=== PATIENT | female | born 1995 | race Caucasian/White ===

== ENCOUNTER 2016-05-30 05:01 | Inpatient (IN) | payer MEDICAID ==
[2016-05-30] VITALS (7 sets, daily range): BP systolic 116–130; BP diastolic 68–80; PULSE 52–72; RESP 18
[~2016-05-30] VITALS: Ht 165.1 cm; Wt 49.4 kg
[~2016-05-30 05:01] MED LIST: CALNTAB
--- NOTE | 2016-05-30 06:48 | HHI.HP ---
History & Physical H&P HPI Travel History International Travel<30 Days: No Contact w/Intl Traveler<30Days: No Known Affected Area: No History of Present Illness HPI This patient is a 20-year-old 1 para 0 EDC is June 11, 2016 presently at 38 weeks and 2 days she presents with chief complaint of onset of contractions at 3:30 AM no rupture of membranes positive bloody show baby's been active care with [facility] courses been unremarkable problem list includes late onset of care under weight UTI rubella nonimmune group B strep is negative hemoglobin A1c 5.6 O+ last hemoglobin of 10.8 rubella nonimmune Pap normal VDRL is negative hepatitis-negative HIV-negative GC Chlamydia negative GBS negative History (Limited) History Past Medical History Narrative Medical Allergy to liquid Tylenol and oranges states she has nausea and vomiting with a liquid and breaks out in hives with oranges Obstetric History Obstetric History First Past Surgical History Surgical History: No Previous Surgery Family History Family History: Negative Social History Alcohol Use: No Tobacco Use: No Substance Abuse: No Allergies-Medications Allergies-Medications (Allergen,Severity, Reaction): Coded Allergies: Tylenol (Unverified Adverse Reaction, Mild, VOMITING, 05/28/16) Home Meds Reported Medications Vitamin (Calna)1 Tab Tab 05/13/16 ROS Review of Systems Gastrointestinal: Abdominal Pain (contractions) Physical Exam Physical Exam Narrative GENERAL: Well-nourished, well-developed patient. Alert oriented 3 and cooperative in moderate distress secondary to uterine contractions SKIN: Warm and dry. HEAD: Normocephalic and atraumatic. EYES: No scleral icterus. No injection or drainage. Conjunctiva are pink ENT: No nasal drainage noted. Mucous membranes pink. Airway patent. Nose tab 2 NECK: Supple, trachea midline. No JVD. CARDIOVASCULAR: Regular rate and rhythm without murmurs, gallops, or rubs. RESPIRATORY: Breath sounds equal bilaterally. No accessory muscle use. ABDOMEN/GI: Gravid estimated weight is 5-1/2-6 pounds, patient has abdominal tattoo Gravid to [-] weeks size term Fundal Height: [-] GENITOURINARY: External Genitalia: intact and normal in appearance BUS glands: [-] Cervix: [-] Slightly posterior Dilatation: [-] 2 cm dilated Effacement: [-] 100% effaced Station: [-] +1 station Presentation: [-] Vertex Membranes: [intact Contractions every 2-3 minutes FHT's: Category: [-] 1 Baseline: [-] 130 Reactive: [-] Positive with accelerations up to 160 Variability: [-] Moderate darr-hc-yufi variability Decels: [-] 0 EXTREMITIES: No cyanosis or edema. 2+ reflexes NEUROLOGICAL: Awake and alert. Motor and sensory grossly within normal limits. Five out of 5 muscle strength in all muscle groups. Normal speech. Data Data Data Vital Signs Reviewed: Yes (blood pressure is 121/76 pulse 81 respiration 16 temperature is 97.4) Orders Ob (2e) Additional Admit Info (05/30/16 06:36) MDM MDM Medical Record Reviewed: Yes Interpretation(s) 20-year-old 1 para 0 at 38 weeks and 2 days Early latent phase History of anemia GBS is negative Rubella nonimmune Plan Admit as patient has made change from initial exam External monitoring IV fluid hydration CBC type and screen Patient does desire an epidural Diagnosis Diagnosis: Primary Impression: with 38 completed weeks gestation Nurys Zamarripa MD May 30, 2016 06:47 Nurys Zamarripa MD May 30, 2016 06:48
[2016-05-30] MEDS ORDERED: SODIUM CHLORID 0.9% 500 ML INJ 500 ML IV PRN (07:00)
[2016-05-30] MEDS ORDERED: LIDOCAINE HCL 1% 50 ML VIAL I-DERMAL PRN (07:00)
[2016-05-30] MEDS ORDERED: OXYTOCIN 30 UNITS-500ML PREMIX 500 ML IV ONE (07:00)
[2016-05-30] MEDS ORDERED: CITRIC ACID-SODIUM CITRATE LIQ 30 ML UDC PO SCH (07:00)
[2016-05-30] MEDS ORDERED: MINERAL OIL 10 ML VIAL TOPICAL PRN (07:00)
[2016-05-30] MEDS ORDERED: LIDOCAINE HCL 1% 50 ML VIAL INFIL PRN (07:00)
[2016-05-30] MEDS ORDERED: SODIUM CHLOR 0.9% 1000 ML INJ 1,000 ML IV PRN (07:08)
[2016-05-30 07:53] LABS: BACTERIA, URINE MOD /hpf; BLOOD, URINE MOD (NEG); COMMENT (UR) CULTURE INDICATED; CULTURE IF INDICATED CULTURE INDICATED; GLUCOSE,URINE NEG (NEG); KETONE, URINE NEG (NEG); NITRITE,URINE NEG (NEG); SQUAMOUS EPITHELIAL CELL URINE 2 /hpf (0-5); URINE COLOR LIGHT-YELLOW (YELLW/STRAW)
[2016-05-30] MEDS ORDERED: ACET1CAP18 PO (08:03)
[2016-05-30 08:12] LABS: AMPHETAMINE, URINE NEG (NEG); BARBITURATES, URINE NEG (NEG); COCAINE, URINE NEG (NEG)
[2016-05-30 08:21] LABS: BASOPHIL % 0.3 % (0.0-2.0); EOSINOPHIL % 0.1 % (0.0-4.0); HEMATOCRIT 29.4 % (35.0-46.0); HEMO FLAGS DIFF FINAL; LYMPH % 8.6 % (9.0-44.0); MEAN CELL VOLUME 77.5 FL (80.0-100.0); MEAN CORPUSCULAR HEMOGLOBIN 25.9 PG (27.0-34.0); MEAN CORPUSCULAR HGB CONC 33.4 % (32.0-36.0); MONO % 7.7 % (0.0-8.0); NEUT % 83.3 % (16.0-70.0); PLATELET COUNT 179 TH/MM3 (150-450); RED CELL DISTRIBUTION WIDTH 14.4 % (11.6-17.2)
[2016-05-30] MEDS: LACTATED RINGER'S 1000 ML INJ 1,000 ML IV SCH ×2 (08:39→18:44)
[2016-05-30] MEDS ORDERED: fentaNYL 2MCG-BUPIV 0.125% INJ 100 ML ONE (09:02)
[2016-05-30] MEDS ORDERED: ePHEDrine/NS 50 MG/5 ML SYR ONE (09:04)
[2016-05-30] MEDS: LACTATED RINGER'S 1000 ML INJ 1,000 ML IV PRN ×2 (10:14→14:04)
[2016-05-30] MEDS ORDERED: ePHEDrine/NS 50 MG/5 ML SYR IV PRN (11:00)
[2016-05-30] MEDS ORDERED: NO SYSTEM NARCOTICS XX PRN (11:00)
[2016-05-30] MEDS ORDERED: fentaNYL 2MCG-BUPIV 0.125% INJ 100 ML EPIDURAL SCH (11:00)
[2016-05-30] MEDS ORDERED: DO NOT ADMINISTER ANTICOAGULANTS XX PRN (11:00)
[2016-05-30] MEDS ORDERED: LABETALOL HCL 300 MG TAB PO SCH (16:00)
--- NOTE | 2016-05-30 17:17 | PD.LABORPN ---
Subjective Subjective Patient is comfortable, epidural is in place, patient reports presence of movement, denies vaginal bleeding and leakage of fluid. She is regla adequately Objective Vital Signs Vital signs stable Vital Signs Date Time Temp Pulse Resp B/P Pulse Ox O2 Delivery O2 Flow Rate FiO2 05/30/16 10:30 52 05/30/16 10:11 59 117/76 05/30/16 10:05 68 05/30/16 09:55 18 05/30/16 09:15 18 Objective Pelvic Exam: Cervix: 4 cm, 70% efface, -3 , anterior Dilatation: 4 cm Effacement: 70% effaced Station: -3 Presentation: Cephalic Membranes: I have artificially ruptured the membranes at 17.10 hours and the fluid is clear Uterine Contractions: Contractions every 3-4 minutes FHT's: Category: one Baseline: 140s Reactive: Yes Variability: Moderate Decels: None Assessment/Plan Assessment and Plan Term in active labor, reassuring heart status. Continue current management. Elvin Draper MD May 30, 2016 17:17
[2016-05-30 17:46] LABS: ANION GAP 11 MEQ/L (5-15); AST (GOT) 16 U/L (16-38); BICARBONATE 24.4 MEQ/L (21.0-32.0); BLOOD UREA NITROGEN 8 MG/DL (7-18); CHLORIDE 101 MEQ/L (98-107); GLOMERULAR FILTRATION RATE 127 ML/MIN (>89); POTASSIUM 3.9 MEQ/L (3.5-5.1); SODIUM (NA) 136 MEQ/L (136-145); URIC ACID 4.8 MG/DL (2.6-6.0)
[2016-05-30 17:49] LABS: ALKALINE PHOSPHATASE 195 U/L (45-117); ALT (GPT) 13 U/L (9-42); LDH SERUM 166 U/L (84-246); TOTAL BILIRUBIN ADULT 0.3 MG/DL (0.2-1.0)
[2016-05-30] MEDS ORDERED: OXYTOCIN 30 UNITS-500ML PREMIX 500 ML IV SCH (20:30)
[2016-05-31] MEDS ORDERED: ACETAMINOPHEN 1000 MG/100 ML VIAL IV ONE (00:45)
[2016-05-31] MEDS ORDERED: AMPICILLIN INJ 1,000 MG in SODIUM CHLORIDE 0.9% INJ 100 ML IV SCH (01:00)
[2016-05-31] MEDS ORDERED: GENTAMICIN 80 MG PREMIX 100 ML IV SCH (02:00)
[2016-05-31] MEDS: LACTATED RINGER'S 1000 ML INJ 1,000 ML IV SCH (02:36)
[2016-05-31] MEDS ORDERED: ZOLPIDEM TARTRATE 5 MG TAB PO PRN (05:30)
[2016-05-31] MEDS ORDERED: SODIUM CHLORIDE 0.9% FLUSH 5 ML FLUSH IV PRN (05:30)
[2016-05-31] MEDS ORDERED: BENZOCAINE 20% TOPICAL SPRAY 60 ML CAN TOPICAL PRN (05:30)
[2016-05-31] MEDS ORDERED: ACETAMINOPHEN 325 MG TAB PO PRN (05:30)
[2016-05-31] MEDS ORDERED: ONDANSETRON ODT 4 MG TAB PO PRN (05:30)
[2016-05-31] MEDS ORDERED: ALUMINUM/MAGNESIUM/SIMETH 30 ML CUP PO PRN (05:30)
[2016-05-31] MEDS ORDERED: WITCH HAZEL 50%/GLYCERIN 12.5% 40 PAD JAR TOPICAL PRN (05:30)
--- NOTE | 2016-05-31 06:08 | PD.OB.DELI ---
Delivery Date: May 31, 2016 Anesthesia: Epidural Episiotomy: Midline Vaginal Delivery: Normal, Spontaneous Presentation: Occiput anterior, Vertex Nuchal Cord: x1 : Male, Single One Minute : 8 Five Minute : 9 Weight: 3280 grams, 7 lbs. 4 oz. Care: Suctioned, Spontaneous crying, Responded to stimulation, Blow-by O2 delivered, Transferred to nursery, Other (nursery team present) Placenta: Spontaneous delivery, Intact, 3 vessel cord Laceration: Episiotomy, 2 deg Repair: Vicryl interrupted, Vicryl running Additional Information Estimated blood loss is 400 mL, time of delivery is 04.22 hours. Elvin Draper MD May 31, 2016 06:08
[2016-05-31] MEDS: IBUPROFEN 600 MG TAB PO PRN ×2 (07:57→22:44)
[2016-05-31] MEDS ORDERED: SODIUM CHLORIDE 0.9% FLUSH 5 ML FLUSH IV SCH (09:00)
[2016-05-31] MEDS: oxyCODONE/ACETAMINOPHEN 5 MG/325 MG TAB PO PRN ×2 (14:07→22:44)
[2016-05-31] MEDS ORDERED: MEASLES, MUMPS, RUBELLA VACCINE 0.5 ML VIAL SQ ONE (16:00)
[2016-05-31] MEDS ORDERED: DIPHTH/TETANUS/ACEL PERTUSSIS (BOOSTER) 0.5 ML VIAL/PFS IM ONE (16:00)
[2016-05-31] MEDS: DOCUSATE SODIUM 50 MG/SENNA 8.6 MG TAB PO PRN (19:05)
[2016-05-31] MEDS ORDERED: MAGNESIUM HYDROXIDE SUSP 30 ML CUP PO PRN ×2 (22:30)
[2016-05-31] MEDS ORDERED: BISACODYL 10 MG SUPP RECTAL PRN (22:30)
[2016-06-01] MEDS ORDERED: CEPH500C PO (07:10)
[2016-06-01] MEDS ORDERED: IBUP-232 PO (07:10)
--- NOTE | 2016-06-01 07:10 | HHI.DCPOC ---
Discharge Care Plan Diagnosis: (1) (spontaneous vaginal delivery) Report Symptoms to Your Doctor -Temperate above 100.5 degrees -Redness, of incision or excessive or foul smelling drainage -Unusual pain or calf pain -Increased vaginal bleeding -Painful or difficulty urinating -Feelings of extreme sadness or anxiety after 2 weeks Goals to Promote Your Health * To prevent worsening of your condition and complications * To maintain your health at the optimal level Directions to Meet Your Goals Take your medications as prescribed Follow your dietary instruction Follow activity as directed Ensure plenty of rest for recovery Drink fluids for hydration Keep your appointments as scheduled Take your immunizations and boosters as scheduled If your symptoms worsen call your PCP, if no PCP go to Urgent Care Center or Emergency Room Smoking is Dangerous to Your Health. Avoid second hand smoke Call the 24-hour crisis hotline for domestic abuse at Vero Smith MD R2 Jun 01, 2016 07:10
--- NOTE | 2016-06-01 07:15 | HHI.OB ---
Subjective Post Day: 1 Remarks day #1. AFVSS overnight. Decreased lochia, reportedly like to light. Has urinated twice. No breast tenderness. She is feeding the baby via [breast] and [bottle]. Appetite good. No nausea or vomiting. Patient does not know if she's had a bowel movement. Ambulating well. Denies calf pain or shortness of breath. Otherwise, she is doing well this morning and states she is ready to go home today. Objective Objective Remarks GENERAL: Well-nourished, well-developed patient. CARDIOVASCULAR: Regular rate and rhythm without murmurs, gallops, or rubs. RESPIRATORY: Breath sounds equal bilaterally. No accessory muscle use. ABDOMEN/GI: Abdomen soft, non-tender. Fundus: Firm, non-tender at umbilicus. GENITOURINARY: Light to moderate bleeding. EXTREMITIES: No cyanosis or edema, non-tender, without signs of DVT. Medications and IVs Current Medications Medications (Trade) Dose Ordered Sig/Neil Route Start Time Stop Time Status Last Admin (NS Flush) 2 ml BID IV 05/31/16 09:00 (NS Flush) 2 ml UNSCH PRN IV 05/31/16 05:30 (Tylenol) 650 mg Q4H PRN PO 05/31/16 05:30 (Motrin) 600 mg Q6H PRN PO 05/31/16 05:30 05/31/16 22:44 (Percocet 5-325 Mg) 1 tab Q4H PRN PO 05/31/16 05:30 05/31/16 14:07 (Percocet 5-325 Mg) 2 tab Q4H PRN PO 05/31/16 05:30 05/31/16 22:44 (Americaine 20% Top Spr) 1 spray Q4H PRN TOPICAL 05/31/16 05:30 05/31/16 14:08 (Tucks Pads) 1 applic QID PRN TOPICAL 05/31/16 05:30 05/31/16 14:08 (Concepcion-Colace) 2 tab Q12H PRN PO 05/31/16 05:30 05/31/16 19:05 (Ambien) 5 mg HS PRN PO 05/31/16 05:30 (Mag-Al Plus Susp Liq) 15 ml Q8H PRN PO 05/31/16 05:30 (Zofran Odt) 4 mg Q6H PRN PO 05/31/16 05:30 (Milk Of Magnesia Liq) 30 ml Q6H PRN PO 05/31/16 22:30 (Dulcolax Supp) 10 mg DAILY PRN RECTAL 05/31/16 22:30 (Milk Of Magnesia Liq) 30 ml QID PRN PO 05/31/16 22:30 05/31/16 22:39 (Keflex) 500 mg TID PO 06/01/16 09:00 Assessment/Plan Assessment and Plan 20 y/o female who is PPD# 1 s/p . GBS negative. Found to have UTI by urinalysis and urine culture + GNRs, currently asymptomatic on Keflex. -Continue routine care. -Percocet and Motrin PRN pain. -Encouraged OOB. Advised pelvic rest for 6 wks. -Has not decided on control -Anticipate discharge today. Patient to be discharged with a total of 7 day course of Keflex 500 mg 3 times a day. dw Dr. Bao Leigh MD, Dr. Luis MD/PGY2 Discharge Planning Discharge today with Keflex 500mg TID for UTI. F/u with OB within 6 weeks Marita Waters MD R1 Jun 01, 2016 07:15
[2016-06-01] MEDS: oxyCODONE/ACETAMINOPHEN 5 MG/325 MG TAB PO PRN ×2 (08:42→18:02)
[2016-06-01] MEDS: IBUPROFEN 600 MG TAB PO PRN ×2 (08:42→18:03)
[2016-06-01] MEDS: CEPHALEXIN MONOHYDRATE 500 MG CAP PO SCH ×3 (08:42→18:02)
--- NOTE | 2016-06-01 09:11 | HHI.OB ---
Subjective Remarks seen with [facility] residents and agree with their eval and plan Objective Objective Remarks GENERAL: Well-nourished, well-developed patient. CARDIOVASCULAR: Regular rate and rhythm without murmurs, gallops, or rubs. RESPIRATORY: Breath sounds equal bilaterally. No accessory muscle use. ABDOMEN/GI: Abdomen soft, non-tender. Fundus: Firm, non-tender at umbilicus. GENITOURINARY: Light to moderate bleeding. EXTREMITIES: No cyanosis or edema, non-tender, without signs of DVT. Medications and IVs Current Medications Medications (Trade) Dose Ordered Sig/Neil Route Start Time Stop Time Status Last Admin (NS Flush) 2 ml BID IV 05/31/16 09:00 (NS Flush) 2 ml UNSCH PRN IV 05/31/16 05:30 (Tylenol) 650 mg Q4H PRN PO 05/31/16 05:30 (Motrin) 600 mg Q6H PRN PO 05/31/16 05:30 06/01/16 08:42 (Percocet 5-325 Mg) 1 tab Q4H PRN PO 05/31/16 05:30 05/31/16 14:07 (Percocet 5-325 Mg) 2 tab Q4H PRN PO 05/31/16 05:30 06/01/16 08:42 (Americaine 20% Top Spr) 1 spray Q4H PRN TOPICAL 05/31/16 05:30 05/31/16 14:08 (Tucks Pads) 1 applic QID PRN TOPICAL 05/31/16 05:30 05/31/16 14:08 (Concepcion-Colace) 2 tab Q12H PRN PO 05/31/16 05:30 05/31/16 19:05 (Ambien) 5 mg HS PRN PO 05/31/16 05:30 (Mag-Al Plus Susp Liq) 15 ml Q8H PRN PO 05/31/16 05:30 (Zofran Odt) 4 mg Q6H PRN PO 05/31/16 05:30 (Milk Of Magnesia Liq) 30 ml Q6H PRN PO 05/31/16 22:30 (Dulcolax Supp) 10 mg DAILY PRN RECTAL 05/31/16 22:30 (Milk Of Magnesia Liq) 30 ml QID PRN PO 05/31/16 22:30 05/31/16 22:39 (Keflex) 500 mg TID PO 06/01/16 09:00 06/01/16 08:42 Assessment/Plan Assessment and Plan 20 y/o female who is PPD# 1 s/p . GBS negative. Found to have UTI by urinalysis and urine culture + GNRs, currently asymptomatic on Keflex. -Continue routine care. -Percocet and Motrin PRN pain. -Encouraged OOB. Advised pelvic rest for 6 wks. -Has not decided on control -Anticipate discharge today. Patient to be discharged with a total of 7 day course of Keflex 500 mg 3 times a day. dw Dr. Bao Leigh MD, Dr. Luis MD/PGY2 Discharge Planning Discharge today with Keflex 500mg TID for UTI. F/u with OB within 6 weeks Bao Leigh II, MD Jun 01, 2016 09:11
[2016-06-02] MEDS: DOCUSATE SODIUM 50 MG/SENNA 8.6 MG TAB PO PRN (07:41)
[2016-06-02] MEDS: IBUPROFEN 600 MG TAB PO PRN (07:42)
[2016-06-02] MEDS: oxyCODONE/ACETAMINOPHEN 5 MG/325 MG TAB PO PRN ×2 (07:42→07:46)
[2016-06-02] MEDS ORDERED: OXYC1TAB63 PO (08:04)
--- NOTE | 2016-06-02 08:19 | HHI.OB ---
Subjective Post Day: 2 Remarks Patient is still having cramping 5/10 abdominal pain worse when she strains to use the bathroom. She is urinating without difficulty. No cp, sob, or pain behind her legs. Not feeling lightheaded when she walks. Eating normally. Having decreased vaginal bleeding. Objective Objective Remarks GENERAL: Well-nourished, well-developed patient. CARDIOVASCULAR: Regular rate and rhythm without murmurs, gallops, or rubs. RESPIRATORY: Breath sounds equal bilaterally. No accessory muscle use. ABDOMEN/GI: Abdomen soft, non-tender. Fundus: Firm, non-tender at umbilicus. GENITOURINARY: Light to moderate bleeding. EXTREMITIES: No cyanosis or edema, non-tender, without signs of DVT. Medications and IVs Current Medications Medications (Trade) Dose Ordered Sig/Neil Route Start Time Stop Time Status Last Admin (NS Flush) 2 ml BID IV 05/31/16 09:00 (NS Flush) 2 ml UNSCH PRN IV 05/31/16 05:30 (Tylenol) 650 mg Q4H PRN PO 05/31/16 05:30 (Motrin) 600 mg Q6H PRN PO 05/31/16 05:30 06/02/16 07:42 (Percocet 5-325 Mg) 1 tab Q4H PRN PO 05/31/16 05:30 06/02/16 07:46 (Percocet 5-325 Mg) 2 tab Q4H PRN PO 05/31/16 05:30 06/01/16 18:02 (Americaine 20% Top Spr) 1 spray Q4H PRN TOPICAL 05/31/16 05:30 05/31/16 14:08 (Tucks Pads) 1 applic QID PRN TOPICAL 05/31/16 05:30 05/31/16 14:08 (Concepcion-Colace) 2 tab Q12H PRN PO 05/31/16 05:30 06/02/16 07:41 (Ambien) 5 mg HS PRN PO 05/31/16 05:30 (Mag-Al Plus Susp Liq) 15 ml Q8H PRN PO 05/31/16 05:30 (Zofran Odt) 4 mg Q6H PRN PO 05/31/16 05:30 (Milk Of Magnesia Liq) 30 ml Q6H PRN PO 05/31/16 22:30 (Dulcolax Supp) 10 mg DAILY PRN RECTAL 05/31/16 22:30 (Milk Of Magnesia Liq) 30 ml QID PRN PO 05/31/16 22:30 05/31/16 22:39 (Keflex) 500 mg TID PO 06/01/16 09:00 06/01/16 18:02 Assessment/Plan Problem List: (1) with 38 completed weeks gestation (2) (spontaneous vaginal delivery) (3) UTI (urinary tract infection) Assessment and Plan 20 y/o female who is PPD# 2 s/p . GBS negative. Found to have UTI by urinalysis and urine culture + GNRs, currently asymptomatic on Keflex. -Continue routine care. -Percocet and Motrin PRN pain. -Encouraged OOB. Advised pelvic rest for 6 wks. -Has not decided on control -Anticipate discharge today. Patient to be discharged with a total of 7 day course of Keflex 500 mg 3 times a day. wdw Dr. Dallin MD Discharge Planning Discharge today with Keflex 500mg TID for UTI. F/u with OB within 6 weeks Garfield Royal MD R2 Jun 02, 2016 08:19
[2016-06-02] MEDS: CEPHALEXIN MONOHYDRATE 500 MG CAP PO SCH (10:53)
[2016-06-08 07:36] LABS: BATH SALTS (MDPV) UR NEG (NEG); ECSTASY (MDMA) UR NEG (NEG); HEROIN (6-ACETYLMORPHINE) UR NEG (NEG); K2 SPICE UR NEG (NEG); OBMETHADONE UR NEG (NEG); OXYCODONE (PERCODAN) NEG (NEG); PHENCYCLIDINE URINE NEG (NEG)
== END 2016-06-02 11:40 | disposition home or self-care (01) | DRG 775 ==
LOC: HOBED 05:01 → H2EA 06:39 → H1EA 05-31 06:17
PROVIDERS: ADMIT Obstetrics & Gynecology; ATTEND Obstetrics & Gynecology
PROC: 10E0XZZ Delivery of Products of Conception, External Approach (ICD-10-PCS; principal; 2016-05-30)
PROC: 0W8NXZZ Division of Female Perineum, External Approach (ICD-10-PCS; 2016-05-30)
PROC: 10907ZC Drainage of Amniotic Fluid, Therapeutic from Products of Conception, Via Natural or Artificial Opening (ICD-10-PCS; 2016-05-30)
PROC: 3E0S3CZ (ICD-10-PCS; 2016-05-30)
PROC: 00HU33Z Insertion of Infusion Device into Spinal Canal, Percutaneous Approach (ICD-10-PCS; 2016-05-30)
DX: O23.43 Unspecified infection of urinary tract in pregnancy, third trimester (principal); N39.0 Urinary tract infection, site not specified; Z37.0 Single live birth; Z3A.38 38 weeks gestation of pregnancy
CPT/HCPCS: 59025; 80053; 80301; 80324; 80352; 80354; 80356; 80358; 80371; 81001; 82570; 83615; 83992; 84112; 84156; 84550; 85025; 86900; 86901; 87077; 87086; 87186; 90707; 90715; 99285; G0479; G0480; G0481; J0131; J0290; J1580; J2590; J7120